=== PATIENT | female | born 1950 | race Caucasian/White ===

== ENCOUNTER 2017-03-24 16:04 | Inpatient (IN) | payer MEDICARE ==
[~2017-03-24] VITALS: Ht 154.9 cm; Wt 66.3 kg
[~2017-03-24 16:04] MED LIST: ALCA3DRO EACHEYE; AMLO10TA2 PO; ASPI-496 PO; BIMA2.5D EACHEYE; BUDE10.2 INH; CARB1DRO8 EACHEYE; CELE200C PO; CETI10TA24 PO; CHOL500014 PO; COLACE PO; CYAN1TAB29 PO; CYCL1DRO EACHEYE; DANT25CA PO; FLUT1DIS3 INH; FOLIC ACID PO; GABA100C PO; IBAN150T4 PO; IPRA14.7 INH; IPRA4AER INH; LAMO150T PO; LEVO50TA5 PO; MODA100T2 PO; MORP30TA PO; MORP30TA81 PO; MULT-115 PO; MULT-230 PO; MUPI15CR9 TP; NYST15CR33 TP; OMEGA KRILL PO; ONDA4TAB7 PO; OXYC15TA PO; PANT40TA5 PO; PREG75CA PO; PROPOFOL 10 MG/ML, 100ML IV ONE; RAMI10CA PO; ROSU10TA PO; SERT100T5 PO; TRIA5PAS4 TP; UBID400C6 PO; VITA1CAP PO; [UNRECOGNIZED DRUG - OTHER] PO; [UNRECOGNIZED DRUG - OTHER] TP; [UNRECOGNIZED DRUG - OTHER] TP
[2017-03-24] MEDS ORDERED: SODIUM CHLORIDE 0.9% 1,000 ML IV ONE ×2 (16:09→16:50)
[2017-03-24] MEDS ORDERED: SODIUM CHLORIDE 0.9% 1,000ML IVBOLUS ONE ×4 (16:30→22:30)
[2017-03-24] MEDS ORDERED: SODIUM CHLORIDE FLUSH 10ML SYR IVF ONE (16:30)
[2017-03-24] MEDS ORDERED: FILTER 0.22 MICRON FOR PHENYTOIN IV PRN (16:30)
[2017-03-24] MEDS ORDERED: PHENYTOIN SODIUM 1,000 MG in SODIUM CHLORIDE 0.9% 100 ML IVPB ONE (16:30)
[2017-03-24 16:39] LABS: DAU SCREEN DISCLAIMER
[2017-03-24] MEDS: PROPOFOL 100 ML IV PRN ×2 (17:19→21:02)
[2017-03-24] MEDS ORDERED: HYDROmorphone 1 MG/ML, 1ML ONE (17:20)
[2017-03-24] MEDS ORDERED: RESV50CA PO (17:24)
[2017-03-24] MEDS ORDERED: OXYC40TA PO (17:24)
[2017-03-24] MEDS ORDERED: LAMO200T PO (17:24)
[2017-03-24] MEDS ORDERED: LAMO150T PO (17:24)
[2017-03-24] MEDS ORDERED: NALO25TA PO (17:24)
[2017-03-24 17:25] LABS: ABG COLLECTION SITE LEFT RADIAL
[2017-03-24 17:26] LABS: COLLATERAL CIRCULATION TESTING NORMAL
[2017-03-24 17:30] LABS: FIO2 30 %
[2017-03-24] MEDS ORDERED: HYDROmorphone 1 MG/ML, 1ML IVPush PRN (17:30)
[2017-03-24 17:32] LABS: ASPARTATE AMINO TRANSFERASE 212 U/L (15-37); BLOOD UREA NITROGEN 15 mg/dL (7-18)
[2017-03-24 17:35] LABS: ACETAMINOPHEN 3 mcg/mL (10-30)
[2017-03-24 18:22] LABS: IS PT STATUS REG ER OR PRE ER? YES
[2017-03-24] MEDS ORDERED: BISACODYL 10 MG SUPP PR PRN ×2 (19:30→20:30)
[2017-03-24] MEDS ORDERED: POLYETHYLENE GLYCOL 17 GM PACKET PO PRN (19:30)
[2017-03-24] MEDS ORDERED: ASPIRIN 81 MG TABLET CHEW PO ONE (19:30)
[2017-03-24] MEDS ORDERED: DOCUSATE 100 MG CAPSULE PO PRN (19:30)
[2017-03-24] MEDS ORDERED: PROPOFOL 100 ML IV ONE (20:18)
[2017-03-24 20:23] LABS: IS PT STATUS REG ER OR PRE ER? NO
[2017-03-24] MEDS ORDERED: LIDOCAINE-MPF 1%, 2ML ENDO PRN (20:30)
[2017-03-24] MEDS ORDERED: SENNOSIDES 8.8 MG/5 ML ORAL SOL NG PRN (20:30)
[2017-03-24] MEDS: THIAMINE 100 MG, MVI ADULT 10 ML, FOLIC ACID 1 MG in D5%-0.9% NACL 1,000 ML IV SCH (20:30)
[2017-03-24] MEDS ORDERED: PHARMACY MAY ADJ FOR RENAL FX MC SCH (20:30)
[2017-03-24] MEDS ORDERED: FENTANYL PF 100 MCG/2ML IVPush PRN (20:30)
[2017-03-24] MEDS ORDERED: SENNA/DOCUSATE TABLET NG PRN (20:30)
[2017-03-24] MEDS ORDERED: FAMOTIDINE 20 MG/2 ML IV SCH (20:30)
[2017-03-24] MEDS ORDERED: LACTULOSE 20 GM/30 ML UDC NG PRN (20:30)
[2017-03-24] MEDS ORDERED: FAMOTIDINE 20 MG/2 ML IVPush SCH (21:00)
[2017-03-24] MEDS: ALBUTEROL/IPRATROPIUM 2.5MG/0.5MG, 3 ML INLINE SCH (22:00)
[2017-03-24] MEDS: methylPREDNISolone SOD SUCC 125 MG/2 ML IVPush SCH (22:06)
[2017-03-24 22:53] VITALS: BP 108/66
[2017-03-25] MEDS: SILVER SULF. CRM 1%, 400GM TP PRN ×5 (00:31→22:25)
[2017-03-25 01:36] LABS: IS PT STATUS REG ER OR PRE ER? NO
[2017-03-25] MEDS: methylPREDNISolone SOD SUCC 125 MG/2 ML IVPush SCH ×4 (03:19→21:21)
[2017-03-25] MEDS: ALBUTEROL/IPRATROPIUM 2.5MG/0.5MG, 3 ML INLINE SCH ×6 (03:22→21:55)
[2017-03-25 04:00] VITALS: BP 89/59
[2017-03-25 04:30] LABS: ABG COLLECTION SITE RIGHT RADIAL; COLLATERAL CIRCULATION TESTING NORMAL
[2017-03-25 04:48] LABS: BLOOD UREA NITROGEN 17 mg/dL (7-18)
[2017-03-25 05:01] LABS: ASPARTATE AMINO TRANSFERASE 242 U/L (15-37)
[2017-03-25] MEDS: PROPOFOL 100 ML IV PRN (05:46)
[2017-03-25] MEDS: SODIUM CHLORIDE 0.9% 1,000 ML IV SCH ×2 (05:47→15:33)
[2017-03-25] MEDS ORDERED: MAGNESIUM SULFATE PMX 2GM/50ML 50 ML IV ONE ×2 (06:00→09:00)
[2017-03-25] MEDS ORDERED: POTASSIUM CHLORIDE 40 MEQ in SODIUM CHLORIDE 0.9% 500 ML IV ONE (06:00)
[2017-03-25] MEDS: POTASSIUM CHLORIDE 20 MEQ PACKET PO SCH ×2 (08:58→17:03)
[2017-03-25] MEDS: FAMOTIDINE 20 MG/2 ML IVPush SCH (08:59)
[2017-03-25] MEDS ORDERED: CALCIUM GLUCONATE 4.6 MEQ in SODIUM CHLORIDE 0.9% 50 ML IV ONE (09:00)
[2017-03-25] MEDS: VANCOMYCIN 50 MG/ML ORAL SUSP NG SCH ×3 (10:00→22:25)
[2017-03-25] MEDS: ASPIRIN 81 MG TABLET EC PO SCH (10:20)
[2017-03-25] MEDS: PIPERACILLIN/TAZO 3.375 GM in SODIUM CHLORIDE 0.9% 50 ML IV SCH ×2 (10:22→15:33)
[2017-03-25] MEDS ORDERED: MAGNESIUM SULFATE PMX 4GM/100M 100 ML IV ONE (15:30)
[2017-03-25] MEDS: THIAMINE 100 MG, MVI ADULT 10 ML, FOLIC ACID 1 MG in D5%-0.9% NACL 1,000 ML IV SCH (21:21)
[2017-03-26] MEDS: ALBUTEROL/IPRATROPIUM 2.5MG/0.5MG, 3 ML INLINE SCH ×2 (02:44→06:52)
[2017-03-26] MEDS: VANCOMYCIN 50 MG/ML ORAL SUSP NG SCH ×4 (03:12→22:54)
[2017-03-26] MEDS: methylPREDNISolone SOD SUCC 125 MG/2 ML IVPush SCH ×4 (03:12→20:55)
[2017-03-26] MEDS: PIPERACILLIN/TAZO/PMX 3.375GM 50 ML IV SCH ×4 (03:56→22:54)
[2017-03-26 04:00] VITALS: BP 106/66
[2017-03-26] MEDS: ASPIRIN 81 MG TABLET EC PO SCH (05:53)
[2017-03-26 06:18] LABS: ASPARTATE AMINO TRANSFERASE 292 U/L (15-37); BLOOD UREA NITROGEN 17 mg/dL (7-18)
[2017-03-26 06:30] LABS: ABG COLLECTION SITE RIGHT RADIAL; COLLATERAL CIRCULATION TESTING NORMAL
[2017-03-26] MEDS: FAMOTIDINE 20 MG/2 ML IVPush SCH (07:47)
[2017-03-26] MEDS: SODIUM CHLORIDE 0.9% 1,000 ML IV SCH (07:48)
[2017-03-26] MEDS: SILVER SULF. CRM 1%, 400GM TP PRN (08:00)
[2017-03-26] MEDS ORDERED: PANTOPRAZOLE GRAN. PKT 40 MG PO ONE (09:00)
[2017-03-26] MEDS ORDERED: CALCIUM GLUCONATE 4.6 MEQ in SODIUM CHLORIDE 0.9% 50 ML IV ONE (10:00)
[2017-03-26] MEDS: INSULIN REGULAR, HUMAN 100 UNITS/ML, 3ML MEDIUM DOSE SS SQ-INSULIN SCH ×3 (11:00→20:56)
[2017-03-26] MEDS: OXYcodone IR 5MG TABLET PO PRN ×2 (16:57→20:55)
[2017-03-26] MEDS: THIAMINE 100 MG, MVI ADULT 10 ML, FOLIC ACID 1 MG in D5%-0.9% NACL 1,000 ML IV SCH (20:56)
[2017-03-27] MEDS: OXYcodone IR 5MG TABLET PO PRN ×3 (01:03→20:31)
[2017-03-27 04:00] VITALS: BP 113/57
[2017-03-27] MEDS: PIPERACILLIN/TAZO/PMX 3.375GM 50 ML IV SCH ×4 (04:05→22:51)
[2017-03-27] MEDS: methylPREDNISolone SOD SUCC 125 MG/2 ML IVPush SCH ×2 (04:05→09:36)
[2017-03-27] MEDS: VANCOMYCIN 50 MG/ML ORAL SUSP NG SCH ×4 (04:06→22:47)
[2017-03-27 04:27] LABS: ASPARTATE AMINO TRANSFERASE 232 U/L (15-37); BLOOD UREA NITROGEN 16 mg/dL (7-18)
[2017-03-27] MEDS: INSULIN REGULAR, HUMAN 100 UNITS/ML, 3ML MEDIUM DOSE SS SQ-INSULIN SCH ×4 (06:11→20:38)
[2017-03-27] MEDS: ASPIRIN 81 MG TABLET EC PO SCH (06:23)
[2017-03-27 06:52] LABS: ABG COLLECTION SITE RIGHT RADIAL; COLLATERAL CIRCULATION TESTING NORMAL
[2017-03-27] MEDS: methylPREDNISolone SOD SUCC 40 MG/ML IVPush SCH (16:16)
[2017-03-27] MEDS: ONDANSETRON 2MG/ML, 2ML IVPush PRN (22:37)
[2017-03-27] MEDS: THIAMINE 100 MG, MVI ADULT 10 ML, FOLIC ACID 1 MG in D5%-0.9% NACL 1,000 ML IV SCH (22:47)
[2017-03-28] MEDS: OXYcodone IR 5MG TABLET PO PRN ×5 (00:31→19:54)
[2017-03-28] MEDS: methylPREDNISolone SOD SUCC 40 MG/ML IVPush SCH ×2 (01:30→09:06)
[2017-03-28 02:42] VITALS: BP 180/82
[2017-03-28] MEDS ORDERED: MORPHINE SULFATE 4 MG/ML, 1ML IVPush ONE (03:30)
[2017-03-28] MEDS: PIPERACILLIN/TAZO/PMX 3.375GM 50 ML IV SCH ×2 (04:31→11:35)
[2017-03-28 04:40] LABS: ABG COLLECTION SITE RIGHT RADIAL; COLLATERAL CIRCULATION TESTING NORMAL
[2017-03-28] MEDS: VANCOMYCIN 50 MG/ML ORAL SUSP NG SCH ×4 (04:42→22:32)
[2017-03-28] MEDS: ONDANSETRON 2MG/ML, 2ML IVPush PRN ×3 (04:43→18:45)
[2017-03-28 04:57] LABS: BLOOD UREA NITROGEN 16 mg/dL (7-18)
[2017-03-28 05:08] LABS: ASPARTATE AMINO TRANSFERASE 159 U/L (15-37)
[2017-03-28] MEDS: ASPIRIN 81 MG TABLET EC PO SCH (06:17)
[2017-03-28] MEDS: INSULIN REGULAR, HUMAN 100 UNITS/ML, 3ML MEDIUM DOSE SS SQ-INSULIN SCH ×4 (07:00→21:00)
[2017-03-28 07:29] VITALS: BP 181/78
[2017-03-28] MEDS: ALUMINUM/MAG/SIMETHICONE 30 ML UDC PO PRN ×3 (08:10→22:31)
[2017-03-28 09:13] LABS: HEP B SURF. AB 26.5 mIU/mL (0.0-10.0)
[2017-03-28 09:48] LABS: HEPATITIS C VIRUS ANTIBODY Nonreactive (Nonreactive)
[2017-03-28] MEDS ORDERED: REGADENOSON 0.4 MG/5 ML SYRINGE ONE (10:34)
[2017-03-28] MEDS ORDERED: OXYC40TA27 PO (12:36)
[2017-03-28 13:37] VITALS: BP 134/79
[2017-03-28] MEDS: SILVER SULF. CRM 1%, 400GM TP PRN (15:03)
[2017-03-28] MEDS: THIAMINE 100 MG, MVI ADULT 10 ML, FOLIC ACID 1 MG in D5%-0.9% NACL 1,000 ML IV SCH (19:54)
[2017-03-28 20:10] VITALS: BP 147/85
[2017-03-29] MEDS: OXYcodone IR 5MG TABLET PO PRN ×4 (00:20→15:29)
[2017-03-29] MEDS: ONDANSETRON 2MG/ML, 2ML IVPush PRN ×3 (00:51→15:29)
[2017-03-29 01:00] VITALS: BP 163/84
[2017-03-29 01:25] VITALS: BP 144/75
[2017-03-29 05:06] LABS: BLOOD UREA NITROGEN 16 mg/dL (7-18)
[2017-03-29] MEDS: VANCOMYCIN 50 MG/ML ORAL SUSP NG SCH ×2 (06:05→11:45)
[2017-03-29] MEDS: ASPIRIN 81 MG TABLET EC PO SCH (06:05)
[2017-03-29] MEDS: INSULIN REGULAR, HUMAN 100 UNITS/ML, 3ML MEDIUM DOSE SS SQ-INSULIN SCH ×2 (07:00→11:00)
[2017-03-29 08:07] VITALS: BP 158/89
[2017-03-29] MEDS ORDERED: VANC1VIA3 NG (10:27)
[2017-03-29] MEDS ORDERED: MORP15TA3 PO (10:27)
[2017-03-29] MEDS ORDERED: OXYC5TAB3 PO (10:27)
[2017-03-29 12:25] VITALS: BP 153/82
== END 2017-03-29 15:45 | DRG 208 ==
LOC: ED 16:14 → EDIP 17:23 → CCU 18:34 → 5SO 03-27 17:35
PROVIDERS: ADMIT Hospitalist; ATTEND Hospitalist
PROC: 5A1945Z Respiratory Ventilation, 24-96 Consecutive Hours (ICD-10-PCS; principal; 2017-03-24)
PROC: 0BH17EZ Insertion of Endotracheal Airway into Trachea, Via Natural or Artificial Opening (ICD-10-PCS; 2017-03-24)
DX: J96.00 Acute respiratory failure, unspecified whether with hypoxia or hypercapnia (principal); G93.40 Encephalopathy, unspecified; I21.4 Non-ST elevation (NSTEMI) myocardial infarction; E43 Unspecified severe protein-calorie malnutrition; J15.211 Pneumonia due to Methicillin susceptible Staphylococcus aureus; G93.41 Metabolic encephalopathy; A04.7 Enterocolitis due to Clostridium difficile; E87.2 Acidosis; J44.0 Chronic obstructive pulmonary disease with (acute) lower respiratory infection; Z99.11 Dependence on respirator [ventilator] status; T67.0XXA Heatstroke and sunstroke, initial encounter; D69.6 Thrombocytopenia, unspecified; E03.9 Hypothyroidism, unspecified; E78.5 Hyperlipidemia, unspecified; E83.42 Hypomagnesemia; E83.51 Hypocalcemia; E86.0 Dehydration; E87.6 Hypokalemia; X58.XXXA Exposure to other specified factors, initial encounter; G40.409 Other generalized epilepsy and epileptic syndromes, not intractable, without status epilepticus; I07.1 Rheumatic tricuspid insufficiency; G89.4 Chronic pain syndrome; I11.0 Hypertensive heart disease with heart failure; I35.8 Other nonrheumatic aortic valve disorders; I50.9 Heart failure, unspecified; M43.12 Spondylolisthesis, cervical region; M48.02 Spinal stenosis, cervical region; Z79.82 Long term (current) use of aspirin; I25.2 Old myocardial infarction; Z79.891 Long term (current) use of opiate analgesic; Z87.891 Personal history of nicotine dependence; Z90.49 Acquired absence of other specified parts of digestive tract; Z98.1 Arthrodesis status; Z90.89 Acquired absence of other organs; Z90.710 Acquired absence of both cervix and uterus; Z68.27 Body mass index [BMI] 27.0-27.9, adult; Y93.89 Activity, other specified; Y92.89 Other specified places as the place of occurrence of the external cause; Y99.8 Other external cause status; Z88.1 Allergy status to other antibiotic agents
CPT/HCPCS: 36415; 36600; 51702; 70450; 71010; 72125; 76700; 78452; 80048; 80053; 80307; 80329; 81003; 82140; 82330; 82550; 82803; 82962; 83605; 83735; 84100; 84443; 84478; 84484; 85025; 85610; 85730; 86706; 86803; 87070; 87077; 87081; 87186; 87205; 87324; 87340; 87493; 93005; 93017; 93306; 94002; 94003; 94150; 94640; 95819; 96361; 96365; 96366; 96375; 99292; J0610; J1170; J1815; J2405; J2543; J2704; J2785; J3370; J3411; J3480; J7042; J7620; A9502; C9898; G0480; J2920; J2930; J3475; J7030; J7040; J7512; S0028

== ENCOUNTER 2019-08-01 22:22 | Inpatient (IN) | payer MEDICARE ==
[~2019-08-01] VITALS: Ht 142.2 cm; Wt 56.0 kg
[~2019-08-01 22:22] MED LIST changes: -AMLO10TA2 PO; +AMLO10TA8 PO; -CHOL500014 PO; +CHOL500045 PO; +IBAN150T20 PO; -IBAN150T4 PO; -LAMO150T PO; +LAMO150T2 PO; +LAMO200T2 PO; +MORP-29 PO; -MULT-230 PO; +MULT-806 PO; +NALO25TA PO; +OXYC40TA PO; +OXYC40TA27 PO; +OXYC5TAB3 PO; -PROPOFOL 10 MG/ML, 100ML IV ONE; -RAMI10CA PO; +RAMI10CA59 PO; +RESV50CA PO; -ROSU10TA PO; +ROSU10TA2 PO; +SERT100T32 PO; -SERT100T5 PO; +TRIA5PAS10 TP; -TRIA5PAS4 TP; +VANC1VIA3 NG
[2019-08-01] MEDS ORDERED: SODIUM CHLORIDE 0.9% 1,000 ML IV ONE (22:27)
[2019-08-01] MEDS ORDERED: PANTOPRAZOLE 80 MG in SODIUM CHLORIDE 0.9% 50 ML IVPB ONE (22:27)
[2019-08-01] MEDS ORDERED: PANTOPRAZOLE 80 MG in SODIUM CHLORIDE 0.9% 100 ML IV SCH (22:27)
[2019-08-01] MEDS ORDERED: SODIUM CHLORIDE FLUSH 10ML SYR IVF ONE (22:30)
[2019-08-01] MEDS ORDERED: PANTOPRAZOLE 40 MG IV ONE (22:39)
[2019-08-01] MEDS ORDERED: MORPHINE SULFATE 4 MG/ML, 1ML ONE (22:44)
[2019-08-01] MEDS ORDERED: ONDANSETRON 2MG/ML, 2ML ONE (22:44)
[2019-08-01 22:52] LABS: BASOPHILS # (AUTO) 0.01 x10^3/uL (0-0.1); BASOPHILS % (AUTO) 0 % (0-1); EOSINOPHILS # (AUTO) 0.05 x10^3/uL (0-0.4); EOSINOPHILS % (AUTO) 1 % (1-7); LYMPHOCYTES # (AUTO) 0.81 x10^3/uL (1-3.4); LYMPHOCYTES % (AUTO) 7 % (22-44); MD NO; MEAN CORPUSCULAR HEMOGLOBIN 32.5 pg (27.0-34.8); MEAN CORPUSCULAR HGB CONC 32.4 g/dL (32.4-35.8); MEAN CORPUSCULAR VOLUME 100.4 fL (80-100); MEAN PLATELET VOLUME 7.2 fL (7.4-10.4); MONOCYTES # (AUTO) 0.62 x10^3/uL (0.2-0.8); MONOCYTES % (AUTO) 6 % (2-9); NEUTROPHILS % (AUTO) 86 % (42-75); PLATELET COUNT 261 x10^3/uL (130-400); RED BLOOD COUNT 4.59 x10^6/uL (3.82-5.3); RED CELL DISTRIBUTION WIDTH 14.8 % (9.6-15.2)
[2019-08-01] MEDS ORDERED: ONDANSETRON 2MG/ML, 2ML IVPush ONE (23:00)
[2019-08-01] MEDS ORDERED: MORPHINE SULFATE 4 MG/ML, 1ML IVPush ONE (23:00)
[2019-08-01 23:07] LABS: ALANINE AMINOTRANSFERASE 58 U/L (12-78); ALBUMIN 3.8 g/dL (3.4-5.0); ANION GAP 9 mmol/L (5-15); CHLORIDE 100 mmol/L (98-107)
[2019-08-01 23:08] LABS: INTERNATIONAL NORMALIZED RATIO 0.99 (0.93-1.1); PROTHROMBIN TIME 10.4 Seconds (9.6-11.5)
[2019-08-01 23:09] LABS: ALKALINE PHOSPHATASE 126 U/L (45-117); BILIRUBIN,TOTAL 0.6 mg/dL (0.2-1.0); TOTAL PROTEIN 7.1 g/dL (6.4-8.2)
[2019-08-01] MEDS ORDERED: SODIUM CHLORIDE 0.9%, 500ML IVBOLUS ONE (23:30)
[2019-08-02] VITALS (7 sets, daily range): BP systolic 82–108; BP diastolic 48–63
[2019-08-02] MEDS ORDERED: IBANDRONATE SODIUM 150 MG HOMEMEDPO SCH (00:30)
[2019-08-02] MEDS ORDERED: SODIUM CHLORIDE 0.9%, 500ML IVBOLUS ONE ×6 (00:30→15:00)
[2019-08-02] MEDS ORDERED: ACETAMINOPHEN 325 MG TABLET PO PRN ×2 (00:30→07:30)
[2019-08-02] MEDS ORDERED: PANTOPRAZOLE 80 MG in SODIUM CHLORIDE 0.9% 100 ML IV SCH (00:30)
[2019-08-02] MEDS ORDERED: OXYcodone IR 5MG TABLET PO PRN (00:30)
[2019-08-02] MEDS ORDERED: NS + 40MEQ KCL 1,000 ML IV SCH (00:30)
[2019-08-02] MEDS ORDERED: HEPARIN 5,000 UNITS/ML, 1ML SQ SCH (00:30)
[2019-08-02 02:47] LABS: BASOPHILS # (AUTO) 0.01 x10^3/uL (0-0.1); BASOPHILS % (AUTO) 0 % (0-1); EOSINOPHILS # (AUTO) 0.01 x10^3/uL (0-0.4); EOSINOPHILS % (AUTO) 0 % (1-7); LYMPHOCYTES # (AUTO) 1.06 x10^3/uL (1-3.4); LYMPHOCYTES % (AUTO) 12 % (22-44); MD NO; MEAN CORPUSCULAR HEMOGLOBIN 32.8 pg (27.0-34.8); MEAN CORPUSCULAR HGB CONC 32.8 g/dL (32.4-35.8); MEAN CORPUSCULAR VOLUME 100.1 fL (80-100); MEAN PLATELET VOLUME 7.2 fL (7.4-10.4); MONOCYTES # (AUTO) 0.69 x10^3/uL (0.2-0.8); MONOCYTES % (AUTO) 8 % (2-9); NEUTROPHILS # (AUTO) 7.33 x10^3/uL (1.8-6.8); NEUTROPHILS % (AUTO) 81 % (42-75); PLATELET COUNT 214 x10^3/uL (130-400); RED BLOOD COUNT 4.58 x10^6/uL (3.82-5.3); RED CELL DISTRIBUTION WIDTH 14.7 % (9.6-15.2)
[2019-08-02 02:58] LABS: ALANINE AMINOTRANSFERASE 58 U/L (12-78); ALBUMIN 3.7 g/dL (3.4-5.0); ANION GAP 9 mmol/L (5-15); CALCIUM 8.6 mg/dL (8.5-10.1); CHLORIDE 102 mmol/L (98-107); CREATININE 2.46 mg/dL (0.55-1.02)
[2019-08-02 03:00] LABS: ALKALINE PHOSPHATASE 128 U/L (45-117); BILIRUBIN,TOTAL 0.6 mg/dL (0.2-1.0); TOTAL PROTEIN 7.1 g/dL (6.4-8.2)
[2019-08-02] MEDS ORDERED: POTASSIUM CHLORIDE 20 MEQ TAB.ER.PRT PO ONE (08:00)
[2019-08-02] MEDS: HEPARIN 5,000 UNITS/ML, 1ML SQ SCH ×2 (08:26→21:02)
[2019-08-02] MEDS: SERTRALINE 50MG TABLET PO SCH ×2 (08:27→21:02)
[2019-08-02] MEDS: ATORVASTATIN 40 MG TABLET PO SCH (08:27)
[2019-08-02] MEDS: LACTOBACILLUS CHEW TABLET PO SCH ×3 (08:27→21:03)
[2019-08-02] MEDS: LEVOTHYROXINE 50 MCG TABLET PO SCH (08:27)
[2019-08-02] MEDS: PREGABALIN 75 MG CAPSULE PO SCH ×3 (08:27→21:02)
[2019-08-02] MEDS: LAMOTRIGINE 200 MG TABLET PO SCH ×2 (08:36→21:02)
[2019-08-02 08:58] LABS: MICROSCOPIC INDICATED
[2019-08-02] MEDS ORDERED: ASPIRIN 81 MG TABLET EC PO SCH (09:00)
[2019-08-02] MEDS ORDERED: PANTOPROZOLE 40MG TABLET PO SCH (09:00)
[2019-08-02] MEDS ORDERED: UBIDECARENONE 400 MG PO SCH (09:00)
[2019-08-02 09:01] LABS: POTASSIUM,URINE RANDOM 13 mmol/L; SODIUM,URINE RANDOM 18 mmol/L
[2019-08-02 09:06] LABS: CHLORIDE,URINE RANDOM < 10 mmol/L
[2019-08-02 09:21] LABS: CULTURE INDICATED? YES
[2019-08-02] MEDS: CIPROFLOXACIN LACTATE 200 MG in DEXTROSE 5% 100 ML IV SCH ×2 (11:12→23:52)
[2019-08-02] MEDS: METRONIDAZOLE PMX 500MG/100ML 100 ML IV SCH ×2 (13:09→21:02)
[2019-08-02] MEDS: ONDANSETRON 2MG/ML, 2ML IVPush PRN (13:36)
[2019-08-03] MEDS ORDERED: NS + 40MEQ KCL 1,000 ML IV SCH (00:30)
[2019-08-03 03:06] VITALS: BP 93/62
[2019-08-03] MEDS: METRONIDAZOLE PMX 500MG/100ML 100 ML IV SCH ×3 (04:27→21:54)
[2019-08-03 05:16] LABS: CHLORIDE 116 mmol/L (98-107)
[2019-08-03 05:17] LABS: BASOPHILS # (AUTO) 0.03 x10^3/uL (0-0.1); BASOPHILS % (AUTO) 0 % (0-1); EOSINOPHILS # (AUTO) 0.08 x10^3/uL (0-0.4); EOSINOPHILS % (AUTO) 1 % (1-7); LYMPHOCYTES # (AUTO) 0.97 x10^3/uL (1-3.4); LYMPHOCYTES % (AUTO) 16 % (22-44); MD NO; MEAN CORPUSCULAR HEMOGLOBIN 33.5 pg (27.0-34.8); MEAN CORPUSCULAR HGB CONC 32.9 g/dL (32.4-35.8); MEAN CORPUSCULAR VOLUME 101.7 fL (80-100); MEAN PLATELET VOLUME 7.6 fL (7.4-10.4); MONOCYTES # (AUTO) 0.46 x10^3/uL (0.2-0.8); MONOCYTES % (AUTO) 8 % (2-9); NEUTROPHILS # (AUTO) 4.35 x10^3/uL (1.8-6.8); NEUTROPHILS % (AUTO) 74 % (42-75); PLATELET COUNT 140 x10^3/uL (130-400); RED BLOOD COUNT 3.17 x10^6/uL (3.82-5.3)
[2019-08-03 05:22] LABS: ALANINE AMINOTRANSFERASE 31 U/L (12-78); ALBUMIN 2.2 g/dL (3.4-5.0); ALKALINE PHOSPHATASE 75 U/L (45-117); ANION GAP 5 mmol/L (5-15); BILIRUBIN,TOTAL 0.3 mg/dL (0.2-1.0); CALCIUM 7.1 mg/dL (8.5-10.1); CREATININE 0.83 mg/dL (0.55-1.02); TOTAL PROTEIN 4.3 g/dL (6.4-8.2)
[2019-08-03 08:26] VITALS: BP 98/81
[2019-08-03] MEDS: LEVOTHYROXINE 50 MCG TABLET PO SCH (08:41)
[2019-08-03] MEDS: PREGABALIN 75 MG CAPSULE PO SCH ×3 (08:42→21:54)
[2019-08-03] MEDS: LACTOBACILLUS CHEW TABLET PO SCH ×3 (08:42→21:54)
[2019-08-03] MEDS: ATORVASTATIN 40 MG TABLET PO SCH (08:42)
[2019-08-03] MEDS: LAMOTRIGINE 200 MG TABLET PO SCH ×2 (08:43→21:54)
[2019-08-03] MEDS: SERTRALINE 50MG TABLET PO SCH ×2 (08:43→21:54)
[2019-08-03] MEDS: HEPARIN 5,000 UNITS/ML, 1ML SQ SCH ×2 (08:44→21:55)
[2019-08-03] MEDS: SODIUM CHLORIDE 0.9% 1,000 ML IV SCH (08:53)
[2019-08-03] MEDS: CIPROFLOXACIN LACTATE 200 MG in DEXTROSE 5% 100 ML IV SCH (11:19)
[2019-08-03 12:45] VITALS: BP 122/89
[2019-08-03 19:31] VITALS: BP 97/65
[2019-08-04] MEDS: CIPROFLOXACIN LACTATE 200 MG in DEXTROSE 5% 100 ML IV SCH (00:38)
[2019-08-04 00:42] VITALS: BP 137/85
[2019-08-04] MEDS: SODIUM CHLORIDE 0.9% 1,000 ML IV SCH (01:40)
[2019-08-04] MEDS: METRONIDAZOLE PMX 500MG/100ML 100 ML IV SCH (05:00)
[2019-08-04 05:42] LABS: CHLORIDE 117 mmol/L (98-107)
[2019-08-04 05:49] LABS: % IRON SATURATION 34 % (20-55); BASOPHILS # (AUTO) 0.03 x10^3/uL (0-0.1); BASOPHILS % (AUTO) 1 % (0-1); CALCIUM 8.1 mg/dL (8.5-10.1); CREATININE 0.77 mg/dL (0.55-1.02); EOSINOPHILS # (AUTO) 0.08 x10^3/uL (0-0.4); EOSINOPHILS % (AUTO) 2 % (1-7); IRON LEVEL 61 mcg/dL (50-170); LYMPHOCYTES # (AUTO) 1.06 x10^3/uL (1-3.4); LYMPHOCYTES % (AUTO) 23 % (22-44); MD NO; MEAN CORPUSCULAR HEMOGLOBIN 33.1 pg (27.0-34.8); MEAN CORPUSCULAR HGB CONC 32.6 g/dL (32.4-35.8); MEAN CORPUSCULAR VOLUME 101.6 fL (80-100); MEAN PLATELET VOLUME 7.7 fL (7.4-10.4); MONOCYTES # (AUTO) 0.31 x10^3/uL (0.2-0.8); MONOCYTES % (AUTO) 7 % (2-9); NEUTROPHILS # (AUTO) 3.23 x10^3/uL (1.8-6.8); NEUTROPHILS % (AUTO) 69 % (42-75); PLATELET COUNT 175 x10^3/uL (130-400); RED BLOOD COUNT 3.48 x10^6/uL (3.82-5.3); RED CELL DISTRIBUTION WIDTH 14.8 % (9.6-15.2); TOTAL IRON BINDING CAPACITY 181 mcg/dL (250-450)
[2019-08-04 06:25] LABS: ANION GAP 4 mmol/L (5-15)
[2019-08-04] MEDS ORDERED: metroNIDAZOLE 500 MG TABLET PO SCH (08:30)
[2019-08-04] MEDS ORDERED: MAGNESIUM SULFATE PMX 2GM/50ML 50 ML IV ONE (08:30)
[2019-08-04 08:33] VITALS: BP 154/95
[2019-08-04] MEDS ORDERED: CIPROFLOXACIN 500 MG TABLET PO SCH (09:00)
[2019-08-04] MEDS ORDERED: SODIUM CHLORIDE 0.9% 1,000 ML IV SCH (09:00)
[2019-08-04] MEDS: ONDANSETRON 2MG/ML, 2ML IVPush PRN (09:26)
[2019-08-04] MEDS: LACTOBACILLUS CHEW TABLET PO SCH (09:27)
[2019-08-04] MEDS: ATORVASTATIN 40 MG TABLET PO SCH (09:28)
[2019-08-04] MEDS: LEVOTHYROXINE 50 MCG TABLET PO SCH (09:28)
[2019-08-04] MEDS: LAMOTRIGINE 200 MG TABLET PO SCH (09:28)
[2019-08-04] MEDS: SERTRALINE 50MG TABLET PO SCH (09:28)
[2019-08-04] MEDS: PREGABALIN 75 MG CAPSULE PO SCH (09:28)
[2019-08-04] MEDS: HEPARIN 5,000 UNITS/ML, 1ML SQ SCH (09:29)
[2019-08-04 10:17] LABS: CLOSTRIDIUM DIFFICILE ANTIGEN NEGATIVE; CLOSTRIDIUM DIFFICILE TOXIN NEGATIVE (Negative)
[2019-08-04] MEDS ORDERED: METR500T PO (10:29)
[2019-08-04] MEDS ORDERED: CIPR500T87 PO (10:29)
[2019-08-04] MEDS ORDERED: ACID1TAB7 PO (10:29)
[2019-08-04 14:10] VITALS: BP 116/73
== END 2019-08-04 15:37 | disposition home or self-care (01) | DRG 871 ==
LOC: ED 08-02 00:01 → EDIP 08-02 00:16 → 4WST 08-02 00:39
PROVIDERS: ADMIT Internal Medicine; ATTEND Internal Medicine
DX: A41.9 Sepsis, unspecified organism (principal); N17.0 Acute kidney failure with tubular necrosis; R57.8 Other shock; F11.20 Opioid dependence, uncomplicated; K52.9 Noninfective gastroenteritis and colitis, unspecified; D64.9 Anemia, unspecified; D75.89 Other specified diseases of blood and blood-forming organs; E03.9 Hypothyroidism, unspecified; E78.5 Hyperlipidemia, unspecified; E86.1 Hypovolemia; E87.6 Hypokalemia; F10.21 Alcohol dependence, in remission; Y90.9 Presence of alcohol in blood, level not specified; G89.29 Other chronic pain; H40.9 Unspecified glaucoma; I11.0 Hypertensive heart disease with heart failure; I50.9 Heart failure, unspecified; I89.0 Lymphedema, not elsewhere classified; J44.9 Chronic obstructive pulmonary disease, unspecified; K29.70 Gastritis, unspecified, without bleeding; Z82.49 Family history of ischemic heart disease and other diseases of the circulatory system; Z83.3 Family history of diabetes mellitus; Z85.41 Personal history of malignant neoplasm of cervix uteri; Z86.73 Personal history of transient ischemic attack (TIA), and cerebral infarction without residual deficits; Z87.891 Personal history of nicotine dependence; Z90.711 Acquired absence of uterus with remaining cervical stump; Z96.653 Presence of artificial knee joint, bilateral; Z88.8 Allergy status to other drugs, medicaments and biological substances
CPT/HCPCS: 36415; 74176; 76705; 80048; 80053; 81001; 82274; 82330; 82436; 82570; 82607; 83540; 83550; 83605; 83690; 83735; 84133; 84300; 85025; 85610; 86850; 86900; 87040; 87077; 87086; 87186; 87324; 93005; G0378; J1644; J2405; C9113; J0744; J2270; J3475; J3480; J7030; J7040

== ENCOUNTER 2020-03-04 15:16 | Emergency (ER) | payer MEDICARE ==
[~2020-03-04] VITALS: Ht 142.2 cm; Wt 65.0 kg
[~2020-03-04 15:16] MED LIST changes: +ACID1TAB7 PO; -CETI10TA24 PO; +CETI10TA26 PO; +CIPR500T87 PO; -LAMO150T2 PO; +LAMO150T4 PO; -LAMO200T2 PO; +LAMO200T6 PO; +LEVO250T8 PO; +METR500T PO; +NYST15CR TP; -NYST15CR33 TP; -OXYC15TA PO; +OXYC15TA3 PO
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
--- NOTE | 2020-03-04 15:40 | NUR ---
REPORT RECEIVED FROM VERONIKA GLEASON.
--- NOTE | 2020-03-04 15:40 | NUR ---
LAB AT BEDSIDE AT THIS TIME.
[2020-03-04 15:51] LABS: BASOPHILS # (AUTO) 0.01 x10^3/uL (0-0.1); BASOPHILS % (AUTO) 1 % (0-1); EOSINOPHILS % (AUTO) 3 % (1-7); LYMPHOCYTES % (AUTO) 34 % (22-44); MD NO; MEAN CORPUSCULAR HEMOGLOBIN 31.6 pg (27.0-34.8); MEAN CORPUSCULAR HGB CONC 32.8 g/dL (32.4-35.8); MEAN CORPUSCULAR VOLUME 96.2 fL (80-100); MEAN PLATELET VOLUME 8.2 fL (7.4-10.4); MONOCYTES # (AUTO) 0.16 x10^3/uL (0.2-0.8); MONOCYTES % (AUTO) 5 % (2-9); NEUTROPHILS # (AUTO) 1.83 x10^3/uL (1.8-6.8); NEUTROPHILS % (AUTO) 57 % (42-75); PLATELET COUNT 167 x10^3/uL (130-400); RED BLOOD COUNT 3.77 x10^6/uL (3.82-5.3); RED CELL DISTRIBUTION WIDTH 14.4 % (9.6-15.2)
--- NOTE | 2020-03-04 15:53 | NUR ---
PT AMB TO BR WITH WALKER/STEADY GAIT AT THIS TIME. URINE CUP GIVEN.
[2020-03-04 16:02] LABS: ALANINE AMINOTRANSFERASE 17 U/L (12-78); ALBUMIN 3.3 g/dL (3.4-5.0); ANION GAP 7 mmol/L (5-15); CALCIUM 8.3 mg/dL (8.5-10.1); CHLORIDE 112 mmol/L (98-107); CREATININE 1.01 mg/dL (0.55-1.02)
[2020-03-04 16:06] LABS: ALKALINE PHOSPHATASE 156 U/L (45-117); BILIRUBIN,TOTAL 0.3 mg/dL (0.2-1.0); TOTAL PROTEIN 6.1 g/dL (6.4-8.2)
--- NOTE | 2020-03-04 16:08 | NUR ---
PT IS NOT ABLE TO PROVIDE URINE SAMPLE AT THIS TIME. EDMD NOTIFIED AND STATED"WE CAN WAIT 30MIN OR SO THEN IF SHE CAN'T PEE, TRY STRAIGHT CATH." PT NOTIFIED AND AGREED.
--- NOTE | 2020-03-04 16:48 | NUR ---
PT STRAIGHT CATH'D USING STERILE TECHNIQUE. PT TOLERATED WELL. THIS RN WALKED TO LAB AT THIS TIME.
[2020-03-04 16:58] LABS: MICROSCOPIC NOT IND
[2020-03-04 17:44] VITALS: BP 153/81
--- NOTE | 2020-03-04 17:49 | NUR ---
EDMD AT BEDSIDE TO EXPLAIN ALL RESULTS AT THIS TIME.
--- NOTE | 2020-03-04 18:35 | NUR ---
PT AMB TO BR WITH STEADY GAIT. PT IS CHANGING AT THIS TIME.
--- NOTE | 2020-03-04 18:56 | NUR ---
Patient given discharge instructions and they have confirmed that they understand the instructions. Patient ambulatory with steady gait.
== END 2020-03-04 18:57 | disposition home or self-care (01) ==
LOC: ED 16:31
DX: G20 Parkinson's disease (principal); I11.0 Hypertensive heart disease with heart failure; I50.9 Heart failure, unspecified; R94.31 Abnormal electrocardiogram [ECG] [EKG]; Z90.89 Acquired absence of other organs; Z90.710 Acquired absence of both cervix and uterus; Z90.49 Acquired absence of other specified parts of digestive tract; Z86.73 Personal history of transient ischemic attack (TIA), and cerebral infarction without residual deficits
CPT/HCPCS: 36415; 70450; 71045; 80053; 81003; 83735; 85025; 93005; 99285